=== PATIENT | male | born 1945 | race Caucasian/White ===

== ENCOUNTER 2020-08-01 10:13 | Outpatient (REF) | payer MEDICARE, SELFPAY ==
--- NOTE | 2020-08-01 10:43 | ECG_ITS ---
Test Reason : CP Blood Pressure : / mmHG Vent. Rate : 078 BPM Atrial Rate : 078 BPM P-R Int : 160 ms QRS Dur : 086 ms QT Int : 380 ms P-R-T Axes : 062 025 -03 degrees QTc Int : 433 ms Normal sinus rhythm Low voltage QRS Nonspecific T wave abnormality Inferior leads Abnormal ECG When compared with ECG of 09-SEP-2005 12:16, T wave amplitude has decreased in Inferior leads Referred By: Forrest Aguayo Electronically Signed By:DAVID AN MD
[2020-08-01 12:19] LABS: Alanine Aminotransferase 21 U/L (0-40); Anion Gap 11 (12-20); Blood Urea Nitrogen 14 mg/dL (9-16); Carbon Dioxide 27 mmol/L (22-29); Chloride 104 mmol/L (96-108); Cholesterol 142 mg/dL; Estimated Glomerular Filt Rate > 60; Glucose Fasting 123 mg/dL (60-99); HDL Cholesterol 31 mg/dL; LDL Cholesterol Calculated 90 mg/dl; Sodium 138 mmol/L (135-145); Triglycerides 107 mg/dL
== END 2020-08-01 10:14 | disposition home or self-care (01) ==
LOC: HO.LAB 10:13
PROVIDERS: PCP Family Medicine; Visit Provider Family Medicine
DX: I25.10 Atherosclerotic heart disease of native coronary artery without angina pectoris (principal); E78.00 Pure hypercholesterolemia, unspecified; I10 Essential (primary) hypertension; R73.9 Hyperglycemia, unspecified
CPT/HCPCS: 80051; 80061; 82550; 82565; 82947; 84460; 84520; 93005

== ENCOUNTER 2021-04-16 15:31 | Outpatient (REF) | payer MEDICARE, SELFPAY ==
--- NOTE | ~2021-04-16 | US_ITS ---
EXAMINATION: US RETROPERITONEAL COMPLETE (RENAL) CLINICAL INFORMATION: Cyst of left kidney. COMPARISON: None TECHNIQUE: Real-time imaging of the kidneys and bladder. FINDINGS: RIGHT KIDNEY: 10.8 x 6.5 x 5.1 cm (SAG x AP x TRV). The kidney is normal in size, contour, and echogenicity. Renal cortical thickness is normal. No renal calculi or hydronephrosis. There is an anechoic cyst midpole measuring 1.0 x 0.67 x 0.81 cm. No additional cyst seen. LEFT KIDNEY: 13.1 x 5.1 x 4.6 cm (SAG x AP x TRV). The kidney is normal in size, contour, and echogenicity. Renal cortical thickness is normal. No renal calculi or hydronephrosis. There is a large anechoic cyst upper pole measuring 14.2 x 11.3 x 15.8 cm. It has a few septations. BLADDER: Well distended and normal. Bilateral ureteral jets are demonstrated. Prevoid bladder volume is 161.9 mL. Postvoid bladder volume is 63.6 mL. ADDITIONAL FINDINGS: None. US/US retroperitoneal comp IMPRESSION: There are bilateral renal cysts. The largest cyst upper pole left kidney has septations. There are no echogenic renal calculi or hydronephrosis.
[2021-04-16 16:53] LABS: Alanine Aminotransferase 20 U/L (0-40); Anion Gap 12 (12-20); Blood Urea Nitrogen 15 mg/dL (9-16); Carbon Dioxide 30 mmol/L (22-29); Chloride 103 mmol/L (96-108); Estimated Glomerular Filt Rate > 60; Potassium 4.7 mmol/L (3.3-5.1); Sodium 140 mmol/L (135-145)
== END 2021-04-16 15:32 | disposition home or self-care (01) ==
LOC: HO.US 15:31
PROVIDERS: PCP Family Medicine; Visit Provider Family Medicine
DX: N28.1 Cyst of kidney, acquired (principal)
CPT/HCPCS: 36415; 76770; 80051; 82550; 82565; 84460; 84520

== ENCOUNTER 2021-08-20 12:06 | Outpatient (REF) | payer MEDICARE, SELFPAY ==
[2021-08-20 13:20] LABS: MANUAL DIFF FLAG NO
[2021-08-20 13:26] LABS: Basophils Percent Auto 0.6 % (0-2); Eosinophils Absolute Auto 0.3 X10*3/uL (0.0-0.4); Eosinophils Percent Auto 4.4 % (0-4); Hematocrit 54.4 % (42.0-52.0); Imm Gran Abs Auto 0.02 X10*3/uL (0.00-0.03); Imm Gran Pct Auto 0.3 % (0.0-0.4); Lymphocytes Absolute Auto 1.4 X10*3/uL (1.2-4.9); Lymphocytes Percent Auto 20.4 % (20-40); Mean Corpuscular HGB Conc 34.9 g/dl (31.0-36.0); Mean Corpuscular Hemoglobin 31.6 pg (27.0-33.0); Mean Corpuscular Volume 90.5 fL (80.0-98.0); Mean Platelet Volume 10.6 fL (9.4-12.4); Monocytes Absolute Auto 0.6 X10*3/uL (0.1-1.2); Monocytes Percent Auto 9.3 % (2-11); Neutrophils Absolute Auto 4.3 x10*3/uL (2.0-8.3); Platelet Count 188 X10*3/uL (160-400); Red Blood Count 6.01 X10*6/uL (4.60-5.80); Red Cell Distribution Width 13.2 % (11.0-16.0); White Blood Count 6.7 X10*3/uL (4.8-10.8)
[2021-08-20 14:06] LABS: Erythrocyte Sedimentation Rate 2 MM/HR (0-15)
[2021-08-20 14:26] LABS: Alanine Aminotransferase 21 U/L (0-40); Albumin Level 4.1 g/dL (3.5-5.0); Alkaline Phosphatase 86 U/L (39-117); Anion Gap 13 (12-20); Aspartate Amino Transferase 20 U/L (5-37); Bilirubin Total 1.1 mg/dL (0.0-1.0); Blood Urea Nitrogen 10 mg/dL (9-16); Calcium 9.8 mg/dL (8.4-10.2); Carbon Dioxide 29 mmol/L (22-29); Chloride 100 mmol/L (96-108); Estimated Glomerular Filt Rate > 60; Glucose Random 124 mg/dL (60-115); Potassium 4.5 mmol/L (3.3-5.1); Sodium 137 mmol/L (135-145); Total Protein 7.1 g/dL (6.5-8.0)
[2021-08-20 14:36] LABS: Prostate Specific Antigen Scr 0.92 ng/mL (<0.05-4.0)
== END 2021-08-20 12:07 | disposition home or self-care (01) ==
LOC: HO.10HDL 12:06
PROVIDERS: Visit Provider Family Medicine
DX: Z12.5 Encounter for screening for malignant neoplasm of prostate (principal); R63.4 Abnormal weight loss
CPT/HCPCS: 36415; 80053; 84153; 85025; 85652

== ENCOUNTER 2021-09-18 13:38 | Outpatient (REF) | payer MEDICARE, SELFPAY ==
--- NOTE | ~2021-09-18 | MR_ITS ---
EXAMINATION: MR BRAIN WITHOUT CONTRAST CLINICAL INFORMATION: Ataxia, confusion, and mental status change. Rule out NPH. CSF flow study. COMPARISON: Head CTA 08/17/2017. TECHNIQUE: Multiplanar, multisequence imaging of the brain was performed without intravenous contrast. FINDINGS: There is no acute infarction, lobar hemorrhage, mass, or extra-axial fluid collection. Moderate patchy T2/FLAIR hyperintensity is seen throughout the cerebral white matter, most typical of chronic microangiopathy. There is mild to moderate degree of diffuse brain parenchymal volume loss with commensurate prominence of the ventricles and sulci. The degree of volume loss appears mildly progressed compared with 2017. Numerous small and punctate foci of susceptibility signal are seen within a peripheral distribution throughout the bilateral cerebral hemispheres asymmetrically more prominent on the left. On the cine flow study, biphasic flow is seen across the cerebral aqueduct. The major arterial flow voids are preserved at the skull base. There are bilateral lens replacements. The extracranial structures are within normal limits. MR/MR head/brain wo con IMPRESSION: No acute intracranial abnormality. No findings identified suspicious for normal pressure hydrocephalus. Mild to moderate degree of brain parenchymal volume loss and moderate chronic microangiopathy. Numerous foci of susceptibility signal within the cerebral hemispheres suggestive of cerebral amyloid angiopathy.
== END 2021-09-18 13:39 | disposition home or self-care (01) ==
LOC: HO.MRI 13:38
PROVIDERS: PCP Family Medicine; Visit Provider Family Medicine
DX: G11.19 Other early-onset cerebellar ataxia (principal); R41.82 Altered mental status, unspecified
CPT/HCPCS: 70551

== ENCOUNTER 2021-09-30 13:01 | Outpatient (REF) | payer MEDICARE, SELFPAY ==
[2021-09-30 14:08] LABS: MANUAL DIFF FLAG NO
[2021-09-30 14:14] LABS: Basophils Absolute Auto 0.1 X10*3/uL (0.0-0.2); Basophils Percent Auto 0.7 % (0-2); Eosinophils Absolute Auto 0.2 X10*3/uL (0.0-0.4); Eosinophils Percent Auto 3.2 % (0-4); Hematocrit 51.9 % (42.0-52.0); Hemoglobin 18.4 g/dl (14.0-18.0); Imm Gran Abs Auto 0.01 X10*3/uL (0.00-0.03); Imm Gran Pct Auto 0.1 % (0.0-0.4); Lymphocytes Absolute Auto 1.6 X10*3/uL (1.2-4.9); Lymphocytes Percent Auto 22.8 % (20-40); Mean Corpuscular HGB Conc 35.5 g/dl (31.0-36.0); Mean Corpuscular Volume 90.3 fL (80.0-98.0); Mean Platelet Volume 10.5 fL (9.4-12.4); Monocytes Absolute Auto 0.7 X10*3/uL (0.1-1.2); Monocytes Percent Auto 10.4 % (2-11); Neutrophils Absolute Auto 4.3 x10*3/uL (2.0-8.3); Neutrophils Percent Auto 62.8 % (45-73); Platelet Count 180 X10*3/uL (160-400); Red Blood Count 5.75 X10*6/uL (4.60-5.80); Red Cell Distribution Width 13.4 % (11.0-16.0); White Blood Count 6.8 X10*3/uL (4.8-10.8)
[2021-10-01 09:11] LABS: Erythropoietin (EPO) 18.9 mIU/mL (2.6-18.5)
== END 2021-09-30 13:02 | disposition home or self-care (01) ==
LOC: HO.10HDL 13:01
PROVIDERS: Visit Provider Family Medicine
DX: D45 Polycythemia vera (principal)
CPT/HCPCS: 36415; 81219; 81270; 81279; 81339; 82668; 85025

== ENCOUNTER 2023-07-23 12:58 | Outpatient (AMB) | payer MEDICARE, SELFPAY ==
--- NOTE | 2023-07-23 13:00 | A.OFFVIS_ITS ---
Intake Vital Signs 07/23/23 13:03 Height 5 ft 5 in Weight 175 lb 8 oz BMI 29.2 BP 120/72 Blood Pressure Location Lt brachial Position Sitting Respiration 16 Pulse 57 Pulse Source Pulse Oximeter Pulse Oximetry (%) 98 Oxygen Delivery Method Room Air Intake Visit Reasons: E-SENIOR FACILITIES MANAGER: pressure Hydrocephalus-confirmed Intake Note: Pt reports to this office for new pt evaluation for neuropathy of both feet and tremors of of the upper extremities. He states this has been a problem for over a year now. He also c/o dizzy spells 4-5 times a week for a year. 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 He reports memory issues for past 3 years which has progressed since then.He has trouble remembering names, words of songs from the 50s which he used to remember . He denies misplacing things in the house, denies forgetting conversations, is independant in most ADLS. He has h/o depression( well controlled) , ADD . He denies any urinary incontinence. ABout 8 mths ago he woke up with vertigo .He went to [facility], CT neck and head were did not show any significant changes He was diagnosed with BPPV - seen by ENT and went to vestibular rehab . It helped significantly but still has mild vertigo when he changes position.He still has some balance issues when he walks using a cane. He has 2 back surgeries and has sonic stimulator . He has numbness in his abelino feet which also affects his gait He had h/o [place] palsy - and receives Botox for left facial synkinesis [facility] Medical History (Updated 07/23/23 @ 13:53 by Kusum Shelton MD) Gait disorder Left-sided Cunningham's palsy Polycythemia BPV (benign positional vertigo) Myocardial infarction ADHD Insomnia Depression Hyperlipidemia HTN (hypertension) Surgical History (Updated 07/23/23 @ 13:13 by Milagros Butts CMA) S/P insertion of spinal cord stimulator History of lumbosacral spine surgery H/O angioplasty History of back surgery Family History (Updated 07/23/23 @ 13:14 by Milagros Butts CMA) Father No problems noted. Mother No problems noted. 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 Alcohol intake: never Patient Tobacco Use Status: Former Tobacco user Years Smoked: quit 1993 smoked for 15-20 year 1 ppd Physical Exam Vital Signs: Last Vital Signs Pulse 57 07/23/23 13:03 Resp 16 07/23/23 13:03 BP 120/72 07/23/23 13:03 Pulse Ox 98 07/23/23 13:03 Oxygen Delivery Method Room Air 07/23/23 13:03 BMI result Body Mass Index 29.2 Const General: cooperative, healthy appearing, comfortable and no acute distress Nutritional Appearance: average body habitus Orientation/consciousness: patient oriented x3 Eyes Pupils: Equal, round and reactive pupils present Neck Neck: Yes no meningeal signs Neuro Other: left facial paresis - mild Gait - mild slowing and off balance - better with cane General: patient oriented x3, tone normal, moves all extremities, no meningeal signs and no focal motor deficits Cranial nerves: Yes Facial sensation intact/muscles of mastication intact, Yes Equal, round and reactive pupils present, Yes Bilaterally intact EOM present and Yes Nystagmus not present Cognition (Neuro): normal cognition Motor exam (neuro): 5/5 motor strength present throughout and Normal motor muscle tone present throughout Deep tendon reflexes (DTR's): Right triceps reflex intensity grade: 2+, Left triceps reflex intensity grade: 2+, Rt Biceps (C5, C6): 2+, Left biceps reflex intensity grade: 2+, Right brachioradialis reflex intensity grade: 2+, Left brachioradialis reflex intensity grade: 2+, Right patellar reflex intensity grade: 2+ and Left patellar reflex intensity grade: 2+ Orientation What is the (year) (season) (date) (day) (month)?: year, season, date, day and month Where are we (state) (county) (town or city) (hospital) (floor)?: state, county, town or city, hospital/clinic and floor Registration Name of 3 unrelated objects clearly and slowly, then ask patient to repeat all 3 of them. (1st repeat determines score. Make sure they can repeat all three): object 1, object 2 and object 3 Attention & Calculation (CHOOSE ONE) Spell WORLD backwards (DLROW): 5 letters Recall Ask patient to repeat the 3 items from question #3.: object 1, object 2 and object 3 Language Show patient a wristwatch & ask what it is. Repeat for pencil.: watch and pencil Ask the patient to repeat the phrase 'No ifs, ands, or buts' after you.: correct Ask the patient to 'take a piece of paper with their right hand' 'fold paper in half' 'place paper on floor': take paper in right hand, fold paper in half and place paper on floor Print the sentence 'CLOSE YOUR EYES' on a piece. If patient actually closes eyes then score.: followed written direction Give patient a blank piece of paper & ask to write a sentence. Score if it contains a noun & verb.: sentence contains subject and verb Score Score: 29 Assessment & Plan Assessment & Plan (1) Gait disorder: Comment: normal cognition, no urinary incontinence to suggest NPH Code(s): R26.9 - Unspecified abnormalities of gait and mobility Plan Will review cT report from [facility] for NPH will consider MRI Pt for gait training I will check his Vit B 12 , Vit D for deficiency Orders: Orders Vitamin D 25-OH (D2 and D3) Today H81.10 - Benign paroxysmal vertigo, unspecified ear, R26.9 - Unspecified abnormalities of gait and mobility PT Evaluation and Treatment Today R26.9 - Unspecified abnormalities of gait and mobility Vitamin B12 and Folate Today H81.10 - Benign paroxysmal vertigo, unspecified ear, R26.9 - Unspecified abnormalities of gait and mobility Coding Level of Care Code New Pt Level 4 (07623) Diagnoses Gait disorder R26.9
[2023-07-23 13:03] VITALS: BP 120/72; PULSE 57; RESP 16; O2SAT 98; BMI 29.2
== END 2023-07-23 13:50 | disposition home or self-care (01) ==
PROVIDERS: PCP Family Medicine; Visit Provider Psychiatry & Neurology Neurology
DX: R26.9 Unspecified abnormalities of gait and mobility (principal)
CPT/HCPCS: 99204

== ENCOUNTER → 2023-07-23 12:58 | Outpatient (BNVA) | payer MEDICARE, SELFPAY | PROVIDERS: PCP Family Medicine; Visit Provider Psychiatry & Neurology Neurology | DX: R26.9 Unspecified abnormalities of gait and mobility (principal) | CPT/HCPCS: 99202 ==

== ENCOUNTER 2024-01-18 11:56 | Outpatient (REF) | payer MEDICARE, SELFPAY ==
[2024-01-18 14:11] LABS: Folate 8.8 ng/mL (> or = 4.0); Vitamin B12 373 pg/mL (200-900)
[2024-01-22 16:58] LABS: Vitamin D 25-OH, D2 <4 ng/mL; Vitamin D 25-OH, D3 25 ng/mL; Vitamin D 25-OH, Total 25 ng/mL (30-100)
== END 2024-01-18 11:57 | disposition home or self-care (01) ==
LOC: HO.LAB 11:56
PROVIDERS: PCP Internal Medicine; Visit Provider Psychiatry & Neurology Neurology
DX: R26.9 Unspecified abnormalities of gait and mobility (principal); H81.10 Benign paroxysmal vertigo, unspecified ear
CPT/HCPCS: 36415; 82306; 82607; 82746

== ENCOUNTER 2024-01-21 13:53 | Outpatient (AMB) | payer MEDICARE, SELFPAY ==
--- NOTE | 2024-01-21 13:56 | MHC.OFFVIS ---
Vital Signs 01/21/24 13:57 Respiration 17 Pulse 93 Pulse Source Pulse Oximeter Pulse Oximetry (%) 96 Oxygen Delivery Method Room Air Intake Visit Reasons: 6M follow up-LVM Intake Note: Pt presents for 4 month follow up for gait disorder. Pt c/o some dizziness and issues eating and holding items. Med Specialist Required: No Allergies No Known Allergies Allergy (Verified 01/21/24 13:57) Medication List - Last Reconciled 01/21/24 by Kusum Shelton MD bupropion HCl XL (Wellbutrin XL) 300 mg PO QAM clonazepam 0.5 mg PO DAILY dextroamphetamine-amphetamine 10 mg (Adderall) 10 mg PO DAILY lisinopril 5 mg PO DAILY propranolol 20 mg PO BID trazodone 150 mg PO BEDTIME PRN HPI Comments Details: 78y/o male comes for follow up of gait disorder. MRI brain 2020 did not show any evidence of hydrocephalus. CT brain 2023 did not show any evidence of sleep apnea. His gait has slowed down and is off balance. He had few near falls . He reports memory issues for past 3 years which has progressed since then.He has trouble remembering names, words of songs from the 50s which he used to remember . He denies misplacing things in the house, denies forgetting conversations, is independant in most ADLS. He has h/o depression( well controlled) , ADD . He denies any urinary incontinence. ABout 8 mths ago he woke up with vertigo .He went to [facility], CT neck and head were did not show any significant changes He was diagnosed with BPPV - seen by ENT and went to vestibular rehab . It helped significantly but still has mild vertigo when he changes position.He still has some balance issues when he walks using a cane. He has 2 back surgeries and has sonic stimulator . He has numbness in his abelino feet which also affects his gait He had h/o [place] palsy - and receives Botox for left facial synkinesis [facility] Medical History Gait disorder Left-sided Cunningham's palsy Polycythemia BPV (benign positional vertigo) Myocardial infarction ADHD Insomnia Depression Hyperlipidemia HTN (hypertension) Surgical History S/P insertion of spinal cord stimulator History of lumbosacral spine surgery H/O angioplasty History of back surgery Family History Father No problems noted. Mother No problems noted. 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 Alcohol intake: never Patient Tobacco Use Status: Former Tobacco user Years Smoked: quit 1993 smoked for 15-20 year 1 ppd Physical Exam Vital Signs: Last Vital Signs Pulse 93 01/21/24 13:57 Resp 17 01/21/24 13:57 Pulse Ox 96 01/21/24 13:57 Oxygen Delivery Method Room Air 01/21/24 13:57 Const General: cooperative, healthy appearing, comfortable and no acute distress Nutritional Appearance: average body habitus Orientation/consciousness: patient oriented x3 Eyes Pupils: Equal, round and reactive pupils present Neck Neck: Yes no meningeal signs Neuro Other: left facial paresis - mild Gait - mild slowing and off balance - better with cane General: patient oriented x3, tone normal, moves all extremities, no meningeal signs and no focal motor deficits Cranial nerves: Yes Facial sensation intact/muscles of mastication intact, Yes Equal, round and reactive pupils present, Yes Bilaterally intact EOM present and Yes Nystagmus not present Cognition (Neuro): normal cognition Motor exam (neuro): 5/5 motor strength present throughout and Normal motor muscle tone present throughout Deep tendon reflexes (DTR's): Right triceps reflex intensity grade: 2+, Left triceps reflex intensity grade: 2+, Rt Biceps (C5, C6): 2+, Left biceps reflex intensity grade: 2+, Right brachioradialis reflex intensity grade: 2+, Left brachioradialis reflex intensity grade: 2+, Right patellar reflex intensity grade: 2+ and Left patellar reflex intensity grade: 2+ Assessment & Plan Assessment & Plan (1) Gait disorder: Comment: normal cognition, no urinary incontinence to suggest NPH, multifactorial - neuropathy , lumbar spondylosis Code(s): R26.9 - Unspecified abnormalities of gait and mobility Category: Medical Plan Home PT . WIll follow up clincially Orders: Referrals [facility] Referral G64 - Other disorders of peripheral nervous system, R26.9 - Unspecified abnormalities of gait and mobility Coding Level of Care Code Est Pt Level 4 (46361) Diagnoses Gait disorder R26.9
[2024-01-21 13:57] VITALS: PULSE 93; RESP 17; O2SAT 96
== END 2024-01-21 14:19 | disposition home or self-care (01) ==
PROVIDERS: PCP Family Medicine; Visit Provider Psychiatry & Neurology Neurology
DX: R26.9 Unspecified abnormalities of gait and mobility (principal)
CPT/HCPCS: 99214

== ENCOUNTER → 2024-01-21 13:53 | Outpatient (BNVA) | payer MEDICARE, SELFPAY | PROVIDERS: PCP Family Medicine; Visit Provider Psychiatry & Neurology Neurology | DX: R26.9 Unspecified abnormalities of gait and mobility (principal) | CPT/HCPCS: 99212 ==